=== PATIENT | female | born 1980 | race Caucasian/White ===

== ENCOUNTER 2021-10-09 11:03 | Emergency (ER) | payer OTHER ==
[2021-10-09] MEDS ORDERED: MEDROL 4MG DOSEP4 MG PO (14:41)
== END 2021-10-09 14:51 | disposition home or self-care (01) ==
LOC: FER 11:03
DX: S96.911A Strain of unspecified muscle and tendon at ankle and foot level, right foot, initial encounter (principal); M51.36 Other intervertebral disc degeneration, lumbar region; W19.XXXA Unspecified fall, initial encounter; Y92.89 Other specified places as the place of occurrence of the external cause; Y99.0 Civilian activity done for income or pay; Z28.311 Partially vaccinated for COVID-19
CPT/HCPCS: 72131; 73610